=== PATIENT | female | born 1955 | race Caucasian/White ===

== ENCOUNTER 2022-09-03 10:37 | Outpatient (RCR) | payer MEDICARE, SELFPAY | END 2023-03-02 23:59 | disposition home or self-care (01) | LOC: CCIC 10:37 | PROVIDERS: Visit Provider Nurse Practitioner Family | DX: C50.911 Malignant neoplasm of unspecified site of right female breast (principal); Z17.0 Estrogen receptor positive status [ER+]; Z79.811 Long term (current) use of aromatase inhibitors; M85.80 Other specified disorders of bone density and structure, unspecified site | CPT/HCPCS: 99212; 99214 ==

== ENCOUNTER 2023-07-20 13:16 | Outpatient (CLI) | payer MEDICARE, SELFPAY ==
--- NOTE | 2023-07-20 13:30 | CRLHL7_ITS ---
For Patients: As a result of the Century Cures Act, medical imaging exams and procedure reports are released immediately into your electronic medical record. You may view this report before your referring provider. If you have questions, please contact your health care provider. DXA BONE MINERAL DENSITY STUDY Reason for exam: Malignant neoplasm (breast). Current height (in): 66.5. Weight (lb): 150. Menopause age: 46. Ethnicity: White. 1. Have you had a previous hip or vertebral fracture? No. 2. Have you had any fractures during your adult life which did not result from significant trauma (e.g., auto accident)? No. 3. Did either of your parents have a hip fracture? No. 4. Do you smoke? No. 5. Have you ever taken Glucocorticoids? No. 6. Do you have rheumatoid arthritis? No. 7. Do you have secondary osteoporosis? No. 8. Do you drink 3 or more alcoholic drinks per day? No. 9. Are you being treated for osteoporosis? No. 10. Have you ever taken any of the following medications: Actonel, Evista, Fosamax, Miacalcin, Reclast, Boniva, Forteo, HRT (i.e., estrogen/hormone therapy), Protelos, Prolia, Vitamin D, Calcium, other ??? please specify. ANSWER: Yes, vitamin D and calcium. 11. Do you have any of the following medical conditions: Anorexia or bulimia, asthma or emphysema, end stage renal disease, hyperparathyroidism, any seizure disorders, cancer, inflammatory bowel diseases, hysterectomy, other ??? please specify. ANSWER: Yes, cancer and hysterectomy. 12. What was your maximum height (inches)? 67. 13. Do you perform weight bearing exercise regularly? Yes. 14. Do you regularly consume dairy products? Yes. 15. Do you drink caffeinated beverages? No. If female: 16. At what age did your period start? 13. 17. Are you premenopausal? No. 18. How many full-term pregnancies have you had? 3. 19. Have you ever missed your period for more than 6 months in a row (not including or menopause)? Yes. TECHNIQUE: Bone mineral density study was performed using the [employer]. FINDINGS: The results of the study expressed as bone mineral density (BMD) are as follows: Lumbar spine L1 to L4: BMD: 0.769 g/cm2. T-score: -2.5. Z-score: -0.7 Neck Left: BMD: 0.774 g/cm2. T-score: -0.7. Z-score: 0.9 Right: BMD: 0.722 g/cm2. T-score: -1.1. Z-score: 0.4 Total Left: BMD: 0.904 g/cm2. T-score: -0.3. Z-score: 0.9 Right: BMD: 0.908 g/cm2. T-score: -0.3. Z-score: 1.0 IMPRESSION: Osteoporosis. Rolo Vick M.D. Diagnostic Radiologist [email or web address] ALICIA/josy [email or web address]/Dictated by: Rolo Vick MD @ 07/21/2023 6:17:00 AM (Electronically Signed)
== END 2023-07-20 13:17 | disposition home or self-care (01) ==
PROVIDERS: Visit Provider Internal Medicine Hematology & Oncology
DX: C50.911 Malignant neoplasm of unspecified site of right female breast (principal); M81.0 Age-related osteoporosis without current pathological fracture
CPT/HCPCS: 77080

== ENCOUNTER 2023-08-16 13:06 | Outpatient (RCR) | payer MEDICARE, SELFPAY ==
--- NOTE | 2023-05-26 12:35 | ONC.NURNOTE ---
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 Clinic nurse discussed with patients oncologist and she said this is rare and should be referred to hematology in [place]. [facility] notified of this and patient as well. She will wait for their call until end of the week, and then will call them if she has not heard.
== END 2024-02-12 23:59 | disposition home or self-care (01) ==
LOC: CCIC 13:06
PROVIDERS: Visit Provider Physician Assistant
DX: C50.911 Malignant neoplasm of unspecified site of right female breast (principal); Z17.0 Estrogen receptor positive status [ER+]; Z90.13 Acquired absence of bilateral breasts and nipples; M81.0 Age-related osteoporosis without current pathological fracture; C73 Malignant neoplasm of thyroid gland; D47.02 Systemic mastocytosis
CPT/HCPCS: 99212; 99215

== ENCOUNTER 2024-09-06 13:41 | Outpatient (RCR) | payer MEDICARE, SELFPAY | END 2025-03-05 23:59 | disposition home or self-care (01) | LOC: CCIC 13:41 | PROVIDERS: Visit Provider Internal Medicine Hematology & Oncology | DX: C50.911 Malignant neoplasm of unspecified site of right female breast (principal); Z17.0 Estrogen receptor positive status [ER+]; C73 Malignant neoplasm of thyroid gland; Z90.13 Acquired absence of bilateral breasts and nipples; M81.0 Age-related osteoporosis without current pathological fracture; D47.02 Systemic mastocytosis; Z79.811 Long term (current) use of aromatase inhibitors | CPT/HCPCS: 99214; G0463 ==